=== PATIENT | female | born 1995 | race African-American/Black ===

== ENCOUNTER 2017-07-29 12:59 | Emergency (ER) | payer OTHER ==
[~2017-07-29] VITALS: Ht 175.3 cm; Wt 88.5 kg
[~2017-07-29 12:59] MED LIST: ADVAIR 250-501 EACH IH; ALBUTEROL INHAL17 GM IH; ALLEGRA60 MG PO; AXERT6.25 MG PO; AZITHROMYCIN 2250 MG PO; CEFDINIR PO; FIORICET 50-321 EACH PO; HYDROCODONE-APA1 TA1 PO; IBUPROFEN 800800 M1 PO; IMITREX; KEFLEX500 MG PO; MEDROL DOSPAK21 TA1 PO; MEDROL DOSPAK21 TAB PO; NAPROSYN375 MG PO; PREDNISONE 20 M20 M1 PO; PREDNISONE 20 M20 MG PO; PROVENTIL IH; SINGULAIR 10 MG10 M1 PO; TOPAMAX25 M1 PO; ZPAK PO
[2017-07-29] MEDS ORDERED: PROAIR HFA8.5 GM INH (15:12)
[2017-07-29] MEDS ORDERED: PREDNISONE50 MG PO (15:12)
[2017-07-29 15:21] VITALS: BP 135/92
== END 2017-07-29 15:21 | disposition home or self-care (01) ==
LOC: M.ERS 12:59
DX: J45.901 Unspecified asthma with (acute) exacerbation (principal); G43.909 Migraine, unspecified, not intractable, without status migrainosus; Z88.0 Allergy status to penicillin

== ENCOUNTER 2018-07-10 17:18 | Emergency (ER) | payer OTHER ==
[~2018-07-10] VITALS: Ht 175.3 cm; Wt 75.8 kg
[~2018-07-10 17:18] MED LIST changes: +PREDNISONE50 MG PO; +PROAIR HFA8.5 GM INH
[2018-07-10] MEDS ORDERED: FLOVENT HFA 4444 MCG INH (17:29)
[2018-07-10 18:06] LABS: ABSOLUTE EOSINOPHILS 0.1 thou/uL (0.0-0.7); ABSOLUTE LYMPHOCYTES 2.2 thou/uL (0.8-5.3); ABSOLUTE MONOCYTES 0.3 thou/uL (0.0-1.2); ABSOLUTE NEUTROPHILS 3.4 thou/uL (1.6-8.1); BASOPHILS 0.5 %; EOSINOPHILS 1.9 %; HEMATOCRIT 35.5 % (37.0-47.0); HEMOGLOBIN 12.4 gm/dL (12.0-15.0); LYMPHOCYTES 36.3 %; MCH 34.4 pg (26.0-34.0); MCHC 34.8 g/dL (28.0-37.0); MCV 98.9 fL (80.0-100.0); MONOCYTES 4.8 %; MPV 8.7 fl. (7.2-11.1); NUCLEATED RBCS 0 /100WBC; PLATELET COUNT* 242 thou/uL (150-400); POLYS 56.5 %; RBC 3.59 mil/uL (4.20-5.00); RDW-CV 12.4 % (10.5-14.5); WBC 6.1 thou/uL (4.0-11.0)
[2018-07-10 18:24] LABS: ANION GAP 7 mmol/L (7-16); BUN 15 mg/dL (7-18); CHLORIDE 107 mmol/L (98-107); CO2 28 mmol/L (21-32); CREATININE 0.7 mg/dL (0.6-1.3); GLUCOSE 79 mg/dL (70-99); POTASSIUM 4.6 mmol/L (3.5-5.1); SODIUM 142 mmol/L (136-145); TROPONIN-I LEVEL <0.06 ng/mL (<0.06)
[2018-07-10 18:25] LABS: ALBUMIN 3.6 g/dL (3.4-5.0); ALKALINE PHOSPHATASE 56 U/L (46-116); NT-PRO BRAIN NAT PEPTIDE 72 pg/mL (<300); SGOT 22 U/L (15-37); SGPT 21 U/L (30-65); TOTAL BILIRUBIN 0.3 mg/dL (<0.1-1.0); TOTAL PROTEIN 7.5 g/dL (6.4-8.2)
[2018-07-10] MEDS ORDERED: ZPAK PO (19:04)
[2018-07-10] MEDS ORDERED: MEDROLDOSEPACK PO (19:04)
[2018-07-10] MEDS ORDERED: VENTOLIN HFA 1818 GM INH (19:04)
[2018-07-10] MEDS ORDERED: ALBUTEROL2.5 MG/31 INH (19:04)
[2018-07-10 19:18] VITALS: BP 122/76
--- NOTE | 2018-07-11 17:00 | EKG ---
[place] [address] ELECTROCARDIOGRAM REPORT Name: MICHAEL VILLAGOMEZ Room: [facility]#: [id number] Admission: 07/10/18 Attend Phys: Discharge: 07/10/18 Date of : [birth year] Report #: [id number] THIS REPORT FOR: //name// [facility] ED Test Date: 2018-07-10 Test Time: 17:31:33 Pat Name: MICHAEL VILLAGOMEZ Department: Room: Gender: F Utilities Manager: : 1995 Requested By: Hawa Santiago Order Number: [id number] MD: Be Roger Measurements Intervals [place] Rate: 79 P: 43 [place]: 141 QRS: 68 QRSD: 88 T: 29 QT: 339 QTc: 389 Interpretive Statements Sinus rhythm Low voltage, precordial leads Compared to ECG 02/14/2013 08:26:48 Low QRS voltage now present Electronically Signed On 07-11-2018 17:00:22 CDT by Be Roger [email or web address] <ELECTRONICALLY SIGNED> By: Be Roger MD, [facility] 07/11/18 1700 1731 30 Be Roger MD, [facility] /EPI
== END 2018-07-10 19:18 | disposition home or self-care (01) ==
LOC: M.ERS 17:18
PROVIDERS: Nurse Practitioner Family
DX: J45.901 Unspecified asthma with (acute) exacerbation (principal); Z88.0 Allergy status to penicillin

== ENCOUNTER → 2019-04-06 | Outpatient (CLI) | payer OTHER ==
[~2019-04-06] MED LIST changes: +ALBUTEROL2.5 MG/31 INH; +FLOVENT HFA 4444 MCG INH; +MEDROLDOSEPACK PO; +VENTOLIN HFA 1818 GM INH
== END ==
LOC: M.RAD 14:01
DX: M54.5 Low back pain (principal); F41.1 Generalized anxiety disorder

== ENCOUNTER 2019-08-22 09:17 | Emergency (ER) | payer OTHER ==
[~2019-08-22] VITALS: Ht 177.8 cm; Wt 82.6 kg
[2019-08-22] MEDS ORDERED: SUPRAX400 M1 PO (09:47)
[2019-08-22] MEDS ORDERED: AZITHROMYCIN 2250 MG PO (09:47)
[2019-08-22 09:52] VITALS: BP 126/81
== END 2019-08-22 09:52 | disposition home or self-care (01) ==
LOC: M.ERS 09:17
DX: Z20.2 Contact with and (suspected) exposure to infections with a predominantly sexual mode of transmission (principal); J45.909 Unspecified asthma, uncomplicated; G43.909 Migraine, unspecified, not intractable, without status migrainosus; Z88.0 Allergy status to penicillin; Z79.899 Other long term (current) drug therapy

== ENCOUNTER 2020-05-11 07:48 | Emergency (ER) | payer OTHER ==
[~2020-05-11] VITALS: Ht 177.8 cm; Wt 82.6 kg
[~2020-05-11 07:48] MED LIST changes: +SUPRAX400 M1 PO
[2020-05-11] MEDS ORDERED: PROAIR HFA8.5 GM INH (08:02)
[2020-05-11 08:30] LABS: ABSOLUTE LYMPHOCYTES 2.2 thou/uL (0.8-5.3); ABSOLUTE MONOCYTES 0.3 thou/uL (0.0-1.2); ABSOLUTE NEUTROPHILS 3.2 thou/uL (1.6-8.1); BASOPHILS 0.4 %; EOSINOPHILS 0.6 %; HEMATOCRIT 34.9 % (37.0-47.0); LYMPHOCYTES 37.8 %; MCHC 34.4 g/dL (28.0-37.0); MCV 98.7 fL (80.0-100.0); MONOCYTES 4.9 %; MPV 7.9 fl. (7.2-11.1); NUCLEATED RBCS 0 /100WBC; PLATELET COUNT* 208 thou/uL (150-400); POLYS 56.3 %; RBC 3.54 mil/uL (4.20-5.00); RDW-CV 11.8 % (10.5-14.5); WBC 5.8 thou/uL (4.0-11.0)
[2020-05-11 08:36] LABS: CALCIUM 8.9 mg/dL (8.5-10.1); CREATININE 0.8 mg/dL (0.6-1.3); POTASSIUM 3.6 mmol/L (3.5-5.1)
[2020-05-11 08:41] LABS: ALBUMIN 3.7 g/dL (3.4-5.0); TOTAL BILIRUBIN 0.4 mg/dL (<0.1-1.0); TOTAL PROTEIN 6.8 g/dL (6.4-8.2)
[2020-05-11] MEDS ORDERED: HYDROCODON-ACE1 EAC7 PO (09:09)
[2020-05-11] MEDS ORDERED: PREDNISONE50 MG PO (09:09)
[2020-05-11] MEDS ORDERED: FLEXERIL PO (09:09)
[2020-05-11 09:20] VITALS: BP 120/72
--- NOTE | 2020-05-12 13:40 | EKG ---
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1995 Requested By: Jerardo Aleman Order Number: [id number] MD: Vicente Mattson Measurements Intervals [place] Rate: 89 P: 62 [place]: 154 QRS: 56 QRSD: 80 T: 15 QT: 363 QTc: 442 Interpretive Statements Sinus rhythm Low voltage, precordial leads Compared to ECG 07/10/2018 17:31:33 No significant changes Electronically Signed On 05-12-2020 13:40:17 HIDE CURER by Vicente Mattson [email or web address] <ELECTRONICALLY SIGNED> By: Vicente Mattson MD, [facility] 05/12/20 1340 0832 0832 Vicente Mattson MD, [facility] /EPI
== END 2020-05-11 09:21 | disposition home or self-care (01) ==
LOC: M.ERS 07:48
PROVIDERS: Emergency Medicine Emergency Medical Services
DX: R07.89 Other chest pain (principal); J45.909 Unspecified asthma, uncomplicated; G43.909 Migraine, unspecified, not intractable, without status migrainosus; Z88.1 Allergy status to other antibiotic agents; Z88.0 Allergy status to penicillin